=== PATIENT | female | born 1970 | race American Indian/Alaskan Native ===

== ENCOUNTER 2019-01-27 20:16 | Observation (INO) | payer MEDICAID ==
[2019-01-27] MEDS ORDERED: Insulin Regular, Human 100 Units/ML 3 ML Vial SUBCUT ONE ×2 (21:57→22:42)
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
[2019-01-27] MEDS ORDERED: Sodium Chloride 0.9% 1,000 ML IV SCH ×2 (22:15→22:45)
[2019-01-27] MEDS ORDERED: HYDROmorphone 0.5 MG/0.5 ML Syringe IVPUSH ONE (22:41)
--- NOTE | 2019-01-27 23:09 | CRLCR ---
Indication: SOB Technique: Chest 1 view Comparison: None Findings/Impression: Cardiovascular and mediastinum: Normal cardiac size. A mildly unfolded aorta with mild prominence of the ascending aorta. Lungs and pleural space: Lungs are clear. No sign of infiltrate or mass. No sign of pleural effusion. No pneumothorax. Bones and soft tissues: No significant findings. Dictated by Gabe Nolan MD @ 01/27/2019 11:08:24 PM Dictated by: Gabe Nolan MD @ 01/27/2019 23:08:29 (Electronically Signed)
[2019-01-28 00:01] LABS: HEMOGLOBIN A1C 11.7 % (4.5-6.2)
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
[2019-01-28] MEDS ORDERED: Bisacodyl 5 MG Tab PO PRN (01:18)
[2019-01-28] MEDS ORDERED: Ondansetron 4 MG Tab.DIS PO PRN (01:18)
[2019-01-28] MEDS ORDERED: Albuterol 0.083% 2.5 MG/3 ML Neb Soln NEB PRN (01:18)
[2019-01-28] MEDS ORDERED: Sodium Chloride 0.9% 1,000 ML IV SCH (01:18)
[2019-01-28] MEDS ORDERED: LORazepam 2 MG/ML SDV IV PRN (01:18)
[2019-01-28] MEDS ORDERED: Docusate Sodium 100 MG Cap PO PRN (01:18)
[2019-01-28] MEDS ORDERED: Temazepam 15 MG Cap PO PRN (01:18)
[2019-01-28] MEDS: Acetaminophen/HYDROcodone 325-5 MG Tab PO PRN ×2 (02:14→06:20)
[2019-01-28] MEDS: Sulfamethoxazole/Trimethoprim 800-160 MG Tab PO SCH ×3 (02:14→22:19)
[2019-01-28] MEDS ORDERED: FLU Vacc QS2019-20(6MOS+)/PF 60 MCG/0.5 ML SYRINGE IM ONE ×2 (03:00→10:00)
[2019-01-28] MEDS: Morphine 2 MG/ML Syringe IVPUSH PRN ×2 (03:26→09:48)
[2019-01-28] MEDS ORDERED: ceFAZolin 1 GM in Premix Bag 1 BAG IV SCH (04:00)
[2019-01-28] MEDS ORDERED: ceFAZolin 1 GM in Sodium Chloride 0.9% 50 ML IV SCH (04:00)
[2019-01-28] MEDS: Insulin Lispro 100 Unit/ML 3 ML KwikPen SUBCUT SCH ×4 (08:50→21:14)
[2019-01-28] MEDS: Ferrous Sulfate 325 MG Tab PO SCH ×2 (08:51→17:18)
[2019-01-28] MEDS: Bacitracin Oint 28.35 GM Tube TOP SCH ×3 (08:52→21:15)
[2019-01-28] MEDS: Enoxaparin 40 MG/0.4 ML Syringe SUBCUT SCH (08:52)
[2019-01-28] MEDS ORDERED: Pantoprazole 40 MG Vial IVPUSH SCH (09:00)
[2019-01-28] MEDS ORDERED: Enoxaparin 30 MG/0.3 ML Syringe SUBCUT SCH (09:00)
[2019-01-28] MEDS ORDERED: Sodium Ferric Gluconate Cmplex 250 MG in Sodium Chloride 0.9% 100 ML IV ONE ×2 (11:00→13:00)
[2019-01-28] MEDS ORDERED: 50% Dextrose in Water 50 ML Syringe IV PRN (12:38)
[2019-01-28] MEDS ORDERED: Glucose Gel 15 GM in 37.5 GM Tube PO PRN (12:38)
[2019-01-28] MEDS: ceFAZolin 1 GM in Premix Bag 1 BAG IV SCH ×2 (12:39→20:13)
--- NOTE | 2019-01-28 12:43 | PCM.PN ---
- General Info Date of Service: 01/28/19 Subjective Update: Ms. Morales is a 48-year-old woman who was admitted to observation status through the emergency department for management of an infected wound on the posterior aspect of her right lower leg. He has been present now for approximately one week she does have a scabbed area on the knee as well as Sang on the arm that appear to be healing well. 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 Currently treated with ceftezole and and Septra DS. She feels improved from admission and has remained afebrile as well as hemodynamically stable. - Review of Systems General: Reports: Weakness. Denies: Fever, Chills Pulmonary: Reports: No Symptoms Cardiovascular: Reports: No Symptoms Gastrointestinal: Reports: No Symptoms Skin: Reports: Other (Open sore proximally 1 cm in size posterior aspect of the right calf, no obvious cellulitis) - Patient Data Vitals - Most Recent: Last Vital Signs Temp 97.7 F 01/28/19 12:34 Pulse 93 01/28/19 12:34 Resp 16 01/28/19 12:34 BP 110/51 L 01/28/19 12:34 Pulse Ox 98 01/28/19 12:34 Weight - Most Recent: 137 lb 12.623 oz I&O - Last 24 Hours: Intake & Output 01/27/19 01/28/19 01/28/19 22:59 06:59 14:59 Intake Total 1073 368 Output Total 1100 Balance -27 368 Lab Results Last 24 Hours: Laboratory Results - last 24 hr 01/27/19 01/27/19 01/27/19 Range/Units 22:09 22:09 22:16 WBC 13.9 H (4.5-11.0) K/uL RBC 4.33 (3.30-5.50) M/uL Hgb 7.8 L (12.0-15.0) g/dL Hct 28.6 L (36.0-48.0) % MCV 66 L (80-98) fL MCH 18 L (27-31) pg MCHC 27 L (32-36) % Plt Count 548 H (150-400) K/uL Neut % (Auto) 76 H (36-66) % Lymph % (Auto) 16 L (24-44) % [place] % (Auto) 7 H (2-6) % Eos % (Auto) 1 L (2-4) % Baso % (Auto) 0 (0-1) % VBG pH (7.350-7.450) Sodium 131 L (140-148) mmol/L Potassium 4.3 (3.6-5.2) mmol/L Chloride 98 L (100-108) mmol/L Carbon Dioxide 24 (21-32) mmol/L Anion Gap 13.3 (5.0-14.0) mmol/L BUN 12 (7-18) mg/dL Creatinine 0.7 (0.6-1.0) mg/dL Est Cr Clr Drug Dosing 94.01 mL/min Estimated GFR (MDRD) > 60 (>60) Glucose 472 H* (74-106) mg/dL Hemoglobin A1c (4.5-6.2) % Calcium 8.5 (8.5-10.1) mg/dL Iron (50-170) ug/dL TIBC (250-450) ug/dl % Saturation (20-55) % Ferritin (8-388) ng/ml Total Bilirubin 0.2 (0.2-1.0) mg/dL AST 10 L (15-37) U/L ALT 17 (12-78) U/L Alkaline Phosphatase 185 H (46-116) U/L Total Protein 8.2 (6.4-8.2) g/dL Albumin 2.9 L (3.4-5.0) g/dL Globulin 5.3 H (2.3-3.5) g/dL Albumin/Globulin Ratio 0.6 L (1.2-2.2) TSH, Ultra Sensitive (0.358-3.740) uIU/mL Urine Color Yellow (YELLOW) Urine Appearance Clear (CLEAR) Urine pH 6.0 (5.0-8.0) Ur Specific [place] <= 1.005 L (1.008-1.030) Urine Protein Negative (NEGATIVE) mg/dL Urine Glucose (UA) 500 H (NEGATIVE) mg/dL Urine Ketones Negative (NEGATIVE) mg/dL Urine Occult Blood Negative (NEGATIVE) Urine Nitrite Negative (NEGATIVE) Urine Bilirubin Negative (NEGATIVE) Urine Urobilinogen 0.2 (0.2-1.0) EU/dL Ur Leukocyte Esterase Trace H (NEGATIVE) Urine RBC Not seen (0-5) Urine WBC 5-10 H (0-5) Ur Epithelial Cells Few Amorphous Sediment Not seen Urine Bacteria Not seen Urine Mucus Not seen Urine Opiates Screen (NEGATIVE) Ur Oxycodone Screen (NEGATIVE) Urine Methadone Screen (NEGATIVE) Ur Propoxyphene Screen (NEGATIVE) Ur Barbiturates Screen (NEGATIVE) Ur Tricyclics Screen (NEGATIVE) Ur Phencyclidine Scrn (NEGATIVE) Ur Amphetamine Screen (NEGATIVE) U Methamphetamines Scrn (NEGATIVE) Urine MDMA Screen (NEGATIVE) U Benzodiazepines Scrn (NEGATIVE) U Cocaine Metab Screen (NEGATIVE) U Marijuana (THC) Screen (NEGATIVE) Blood Type Gel Antibody Screen Crossmatch 01/27/19 01/27/19 01/27/19 Range/Units 22:16 22:31 22:32 WBC (4.5-11.0) K/uL RBC (3.30-5.50) M/uL Hgb (12.0-15.0) g/dL Hct (36.0-48.0) % MCV (80-98) fL MCH (27-31) pg MCHC (32-36) % Plt Count (150-400) K/uL Neut % (Auto) (36-66) % Lymph % (Auto) (24-44) % [place] % (Auto) (2-6) % Eos % (Auto) (2-4) % Baso % (Auto) (0-1) % VBG pH 7.446 (7.350-7.450) Sodium (140-148) mmol/L Potassium (3.6-5.2) mmol/L Chloride (100-108) mmol/L Carbon Dioxide (21-32) mmol/L Anion Gap (5.0-14.0) mmol/L BUN (7-18) mg/dL Creatinine (0.6-1.0) mg/dL Est Cr Clr Drug Dosing mL/min Estimated GFR (MDRD) (>60) Glucose (74-106) mg/dL Hemoglobin A1c (4.5-6.2) % Calcium (8.5-10.1) mg/dL Iron (50-170) ug/dL TIBC (250-450) ug/dl % Saturation (20-55) % Ferritin 5 L (8-388) ng/ml Total Bilirubin (0.2-1.0) mg/dL AST (15-37) U/L ALT (12-78) U/L Alkaline Phosphatase (46-116) U/L Total Protein (6.4-8.2) g/dL Albumin (3.4-5.0) g/dL Globulin (2.3-3.5) g/dL Albumin/Globulin Ratio (1.2-2.2) TSH, Ultra Sensitive (0.358-3.740) uIU/mL Urine Color (YELLOW) Urine Appearance (CLEAR) Urine pH (5.0-8.0) Ur Specific [place] (1.008-1.030) Urine Protein (NEGATIVE) mg/dL Urine Glucose (UA) (NEGATIVE) mg/dL Urine Ketones (NEGATIVE) mg/dL Urine Occult Blood (NEGATIVE) Urine Nitrite (NEGATIVE) Urine Bilirubin (NEGATIVE) Urine Urobilinogen (0.2-1.0) EU/dL Ur Leukocyte Esterase (NEGATIVE) Urine RBC (0-5) Urine WBC (0-5) Ur Epithelial Cells Amorphous Sediment Urine Bacteria Urine Mucus Urine Opiates Screen Negative (NEGATIVE) Ur Oxycodone Screen Negative (NEGATIVE) Urine Methadone Screen Negative (NEGATIVE) Ur Propoxyphene Screen Negative (NEGATIVE) Ur Barbiturates Screen Negative (NEGATIVE) Ur Tricyclics Screen Negative (NEGATIVE) Ur Phencyclidine Scrn Negative (NEGATIVE) Ur Amphetamine Screen Negative (NEGATIVE) U Methamphetamines Scrn Negative (NEGATIVE) Urine MDMA Screen Negative (NEGATIVE) U Benzodiazepines Scrn Negative (NEGATIVE) U Cocaine Metab Screen Negative (NEGATIVE) U Marijuana (THC) Screen Negative (NEGATIVE) Blood Type Gel Antibody Screen Crossmatch 01/27/19 01/27/19 01/28/19 Range/Units 23:35 23:35 05:35 WBC 10.6 (4.5-11.0) K/uL RBC 3.92 (3.30-5.50) M/uL Hgb 7.0 L (12.0-15.0) g/dL Hct 26.2 L (36.0-48.0) % MCV 67 L (80-98) fL MCH 18 L (27-31) pg MCHC 27 L (32-36) % Plt Count 453 H (150-400) K/uL Neut % (Auto) 65 (36-66) % Lymph % (Auto) 25 (24-44) % [place] % (Auto) 7 H (2-6) % Eos % (Auto) 2 (2-4) % Baso % (Auto) 0 (0-1) % VBG pH (7.350-7.450) Sodium (140-148) mmol/L Potassium (3.6-5.2) mmol/L Chloride (100-108) mmol/L Carbon Dioxide (21-32) mmol/L Anion Gap (5.0-14.0) mmol/L BUN (7-18) mg/dL Creatinine (0.6-1.0) mg/dL Est Cr Clr Drug Dosing mL/min Estimated GFR (MDRD) (>60) Glucose (74-106) mg/dL Hemoglobin A1c 11.7 H (4.5-6.2) % Calcium (8.5-10.1) mg/dL Iron (50-170) ug/dL TIBC (250-450) ug/dl % Saturation (20-55) % Ferritin (8-388) ng/ml Total Bilirubin (0.2-1.0) mg/dL AST (15-37) U/L ALT (12-78) U/L Alkaline Phosphatase (46-116) U/L Total Protein (6.4-8.2) g/dL Albumin (3.4-5.0) g/dL Globulin (2.3-3.5) g/dL Albumin/Globulin Ratio (1.2-2.2) TSH, Ultra Sensitive 0.195 L (0.358-3.740) uIU/mL Urine Color (YELLOW) Urine Appearance (CLEAR) Urine pH (5.0-8.0) Ur Specific [place] (1.008-1.030) Urine Protein (NEGATIVE) mg/dL Urine Glucose (UA) (NEGATIVE) mg/dL Urine Ketones (NEGATIVE) mg/dL Urine Occult Blood (NEGATIVE) Urine Nitrite (NEGATIVE) Urine Bilirubin (NEGATIVE) Urine Urobilinogen (0.2-1.0) EU/dL Ur Leukocyte Esterase (NEGATIVE) Urine RBC (0-5) Urine WBC (0-5) Ur Epithelial Cells Amorphous Sediment Urine Bacteria Urine Mucus Urine Opiates Screen (NEGATIVE) Ur Oxycodone Screen (NEGATIVE) Urine Methadone Screen (NEGATIVE) Ur Propoxyphene Screen (NEGATIVE) Ur Barbiturates Screen (NEGATIVE) Ur Tricyclics Screen (NEGATIVE) Ur Phencyclidine Scrn (NEGATIVE) Ur Amphetamine Screen (NEGATIVE) U Methamphetamines Scrn (NEGATIVE) Urine MDMA Screen (NEGATIVE) U Benzodiazepines Scrn (NEGATIVE) U Cocaine Metab Screen (NEGATIVE) U Marijuana (THC) Screen (NEGATIVE) Blood Type Gel Antibody Screen Crossmatch 01/28/19 01/28/19 01/28/19 Range/Units 05:35 05:35 05:35 WBC (4.5-11.0) K/uL RBC (3.30-5.50) M/uL Hgb (12.0-15.0) g/dL Hct (36.0-48.0) % MCV (80-98) fL MCH (27-31) pg MCHC (32-36) % Plt Count (150-400) K/uL Neut % (Auto) (36-66) % Lymph % (Auto) (24-44) % [place] % (Auto) (2-6) % Eos % (Auto) (2-4) % Baso % (Auto) (0-1) % VBG pH (7.350-7.450) Sodium 137 L (140-148) mmol/L Potassium 3.6 (3.6-5.2) mmol/L Chloride 105 (100-108) mmol/L Carbon Dioxide 23 (21-32) mmol/L Anion Gap 12.6 (5.0-14.0) mmol/L BUN 7 (7-18) mg/dL Creatinine 0.4 L (0.6-1.0) mg/dL Est Cr Clr Drug Dosing 164.52 mL/min Estimated GFR (MDRD) > 60 (>60) Glucose 128 H (74-106) mg/dL Hemoglobin A1c (4.5-6.2) % Calcium 7.3 L (8.5-10.1) mg/dL Iron 10 L (50-170) ug/dL TIBC 334 (250-450) ug/dl % Saturation 3 L (20-55) % Ferritin (8-388) ng/ml Total Bilirubin (0.2-1.0) mg/dL AST (15-37) U/L ALT (12-78) U/L Alkaline Phosphatase (46-116) U/L Total Protein (6.4-8.2) g/dL Albumin (3.4-5.0) g/dL Globulin (2.3-3.5) g/dL Albumin/Globulin Ratio (1.2-2.2) TSH, Ultra Sensitive (0.358-3.740) uIU/mL Urine Color (YELLOW) Urine Appearance (CLEAR) Urine pH (5.0-8.0) Ur Specific [place] (1.008-1.030) Urine Protein (NEGATIVE) mg/dL Urine Glucose (UA) (NEGATIVE) mg/dL Urine Ketones (NEGATIVE) mg/dL Urine Occult Blood (NEGATIVE) Urine Nitrite (NEGATIVE) Urine Bilirubin (NEGATIVE) Urine Urobilinogen (0.2-1.0) EU/dL Ur Leukocyte Esterase (NEGATIVE) Urine RBC (0-5) Urine WBC (0-5) Ur Epithelial Cells Amorphous Sediment Urine Bacteria Urine Mucus Urine Opiates Screen (NEGATIVE) Ur Oxycodone Screen (NEGATIVE) Urine Methadone Screen (NEGATIVE) Ur Propoxyphene Screen (NEGATIVE) Ur Barbiturates Screen (NEGATIVE) Ur Tricyclics Screen (NEGATIVE) Ur Phencyclidine Scrn (NEGATIVE) Ur Amphetamine Screen (NEGATIVE) U Methamphetamines Scrn (NEGATIVE) Urine MDMA Screen (NEGATIVE) U Benzodiazepines Scrn (NEGATIVE) U Cocaine Metab Screen (NEGATIVE) U Marijuana (THC) Screen (NEGATIVE) Blood Type O POSITIVE Gel Antibody Screen Negative Crossmatch See Detail Adryan Results Last 24 Hours: Microbiology 01/28/19 00:58 Gram Stain - Final Calf, Left Med Orders - Current: Current Medications Acetaminophen (Tylenol) 650 mg PO Q4H PRN PRN Reason: Pain (Mild 1-3)/fever Albuterol (Proventil Neb Soln) 2.5 mg NEB Q4H PRN PRN Reason: Shortness Of Breath/wheezing Bacitracin (Bacitracin Oint) 0 gm TOP TID [facility] Last Admin: 01/28/19 08:52 Dose: 1 applic Bisacodyl (Dulcolax) 5 mg PO DAILY PRN PRN Reason: Constipation Dextrose (Glutose 15) 15 gm PO ONETIME PRN PRN Reason: Hypoglycemia Dextrose/Water (Dextrose 50% In Water) 50 ml IV ONETIME PRN PRN Reason: Hypoglycemia Docusate Sodium (Colace) 100 mg PO BID PRN PRN Reason: Constipation Enoxaparin Sodium (Lovenox) 40 mg SUBCUT DAILY [facility] Last Admin: 01/28/19 08:52 Dose: 40 mg Ferrous Sulfate (Ferrous Sulfate) 325 mg PO BIDMEALS [facility] Last Admin: 01/28/19 08:51 Dose: 325 mg Cefazolin Sodium/Dextrose 1 gm (/ Premix) 50 mls @ 100 mls/hr IV Q8H KACIE Ferric Sodium Gluconate Complex 250 mg/ Sodium Chloride 120 mls @ 60 mls/hr IV ONETIME ONE Stop: 01/28/19 14:59 Ferric Sodium Gluconate Complex 250 mg/ Sodium Chloride 120 mls @ 50 mls/hr IV ONETIME ONE Stop: 01/29/19 10:23 Insulin Glargine (Lantus Solostar) 10 units SUBCUT BEDTIME [facility] Insulin Human Lispro (Humalog) 0 unit SUBCUT QIDACANDBED [facility]; Protocol Last Admin: 01/28/19 08:50 Dose: Not Given Ondansetron HCl (Zofran Odt) 4 mg PO Q6H PRN PRN Reason: Nausea able to take PO Pantoprazole Sodium (Protonix) 40 mg PO ACBREAKFAST [facility] Temazepam (Restoril) 15 mg PO BEDTIME PRN PRN Reason: Sleep Tramadol HCl (Ultram) 50 mg PO Q4H PRN PRN Reason: Pain Trimethoprim/Sulfamethoxazole (Septra Ds) 1 tab PO BID [facility] Last Admin: 01/28/19 08:51 Dose: 1 tab Discontinued Medications Hydrocodone Bitart/Acetaminophen ([place] 325-5 Mg) 1 tab PO Q4H PRN PRN Reason: Pain (moderate 4-6) Last Admin: 01/28/19 06:20 Dose: 1 tab Hydromorphone HCl (Dilaudid) 0.5 mg IVPUSH ONETIME ONE Stop: 01/27/19 22:42 Last Admin: 01/27/19 22:59 Dose: 0.5 mg Sodium Chloride (Normal Saline) 1,000 mls @ 999 mls/hr IV ASDIRECTED [facility] Last Admin: 01/27/19 22:30 Dose: 999 mls/hr Sodium Chloride (Normal Saline) 1,000 mls @ 999 mls/hr IV ASDIRECTED [facility] Last Admin: 01/27/19 23:47 Dose: 999 mls/hr Cefazolin Sodium 1 gm/ Sodium (Chloride) 50 mls @ 100 mls/hr IV Q8H [facility] Last Admin: 01/28/19 03:28 Dose: 100 mls/hr Sodium Chloride (Normal Saline) 1,000 mls @ 125 mls/hr IV ASDIRECTED [facility] Last Admin: 01/28/19 02:15 Dose: 125 mls/hr Influenza Virus Vaccine (Fluzone Quad [id number] Syringe) 60 mcg IM .ONCE ONE Stop: 01/28/19 10:01 Insulin Human Regular (Humulin R) 5 unit SUBCUT ONETIME ONE Stop: 01/27/19 22:43 Last Admin: 01/27/19 22:57 Dose: 5 units Insulin Human Regular (Humulin R) 5 unit SUBCUT .STK-MED ONE Stop: 01/27/19 21:58 Lorazepam (Ativan) 1 mg IV Q6H PRN PRN Reason: Nausea/Vomiting Morphine Sulfate (Morphine) 2 mg IVPUSH Q2H PRN PRN Reason: Pain (severe 7-10) Last Admin: 01/28/19 09:48 Dose: 2 mg Pantoprazole Sodium (Protonix Iv) 40 mg IVPUSH DAILY [facility] Last Admin: 01/28/19 08:52 Dose: 40 mg - Exam Quality Assessment: DVT Prophylaxis General: Alert, Oriented, Cooperative, Mild Distress Lungs: Clear to Auscultation, Normal Respiratory Effort Cardiovascular: Regular Rate, Regular Rhythm, No Murmurs GI/Abdominal Exam: Soft, Non-Tender, No Organomegaly, No Distention Extremities: Other (Open sore posterior aspect right calf, no active cellulitis) - Problem List Review Problem List Initiated/Reviewed/Updated: Yes - My Orders Last 24 Hours: My Active Orders 01/28/19 02:10 Influenza Vaccine Charge [RC] .DISCHARGE 01/28/19 08:21 Transfuse Red Blood Cells [COMM] Urgent 01/28/19 12:31 Convert IV to Saline Lock [OM.PC] Routine 01/28/19 12:32 traMADol [Ultram] 50 mg PO Q4H PRN 01/28/19 12:38 Blood Glucose Check, Bedside [RC] QIDACANDBED Communication Order [RC] STAT Notify Provider [RC] PRN Dextrose 50% in Water 50 ml IV ONETIME PRN Dextrose [Glutose 15] 15 gm PO ONETIME PRN 01/28/19 13:00 Sodium Ferric Gluconate Cmplex [Ferrlecit IV] 250 mg Sodium Chloride 0.9% [ Normal Saline] 100 ml IV ONETIME 01/28/19 14:00 HGB [HEMOGLOBIN] [HEME] Stat 01/28/19 16:30 GLUCOSE POC LAB TO COLLECT [POC] QIDACANDBED 01/28/19 21:00 GLUCOSE POC LAB TO COLLECT [POC] QIDACANDBED 01/29/19 05:00 BASIC METABOLIC PANEL,BMP [CHEM] Timed CBC WITH AUTO DIFF [HEME] Timed 01/29/19 07:30 GLUCOSE POC LAB TO COLLECT [POC] QIDACANDBED 01/29/19 08:00 Sodium Ferric Gluconate Cmplex [Ferrlecit IV] 250 mg Sodium Chloride 0.9% [ Normal Saline] 100 ml IV ONETIME 01/29/19 11:30 GLUCOSE POC LAB TO COLLECT [POC] QIDACANDBED 01/29/19 16:30 GLUCOSE POC LAB TO COLLECT [POC] QIDACANDBED 01/29/19 21:00 GLUCOSE POC LAB TO COLLECT [POC] QIDACANDBED 01/30/19 07:30 GLUCOSE POC LAB TO COLLECT [POC] QIDACANDBED 01/30/19 11:30 GLUCOSE POC LAB TO COLLECT [POC] QIDACANDBED 01/30/19 16:30 GLUCOSE POC LAB TO COLLECT [POC] QIDACANDBED 01/30/19 21:00 GLUCOSE POC LAB TO COLLECT [POC] QIDACANDBED 01/31/19 07:30 GLUCOSE POC LAB TO COLLECT [POC] QIDACANDBED 01/31/19 11:30 GLUCOSE POC LAB TO COLLECT [POC] QIDACANDBED 01/31/19 16:30 GLUCOSE POC LAB TO COLLECT [POC] QIDACANDBED 01/31/19 21:00 GLUCOSE POC LAB TO COLLECT [POC] QIDACANDBED 02/01/19 07:30 GLUCOSE POC LAB TO COLLECT [POC] QIDACANDBED 02/01/19 11:30 GLUCOSE POC LAB TO COLLECT [POC] QIDACANDBED 02/01/19 16:30 GLUCOSE POC LAB TO COLLECT [POC] QIDACANDBED 02/01/19 21:00 GLUCOSE POC LAB TO COLLECT [POC] QIDACANDBED 02/02/19 07:30 GLUCOSE POC LAB TO COLLECT [POC] QIDACANDBED 02/02/19 11:30 GLUCOSE POC LAB TO COLLECT [POC] QIDACANDBED - Plan Plan:: ASSESSMENT AND PLAN Open wound posterior aspect right calf- oh obvious associated cellulitis -Wound care bacitracin ointment and dressing to cover lesion -IV Ancef 1 gram every 8 hours -PO Septra DS one po bid -would culture pending -am labs - CBC, bmp Type 2 diabetes mellitus - poorly controlled, hemoglobin A1c 11 -medium sliding scale coverage -blood glucose checking before meals and evening. -consult to Nurse Education -consule to Dietary Microcytic Anemia - after hydration hemoglobin has dropped to 7, likely secondary to menstrual periods and iron deficiency -Transfuse 1 unit of red blood cells -Follow-up hemoglobin after transfusion -Ferrlecet 250 mg IV today and tomorrow -ferrous sulfate one po bid -Colace ordered for any constipation concerns. -hemoglobin in am Maintenance issues - - DVT prophylaxis - enoxaparin 30 mg subcut - GI prophylaxis - not indicated - Nutrition - diabetic diet - Hopkins catheter - not indicated CODE STATUS - FULL Admission justification - patient will be referred to observation for expedited workup and wound care consultation Disposition - I would anticipate discharge home after the hospital stay Primary care physician - Nelia Lincoln [facility] Hospitalist Dannie Bell M.D.
[2019-01-28] MEDS: traMADol 50 MG Tab PO PRN ×2 (13:34→19:20)
[2019-01-28] MEDS: Acetaminophen 325 MG Tab PO PRN (19:20)
[2019-01-28] MEDS ORDERED: Insulin Glargine,Human Rec. Analog 100 Units/ML 3 ML Pen SUBCUT SCH (21:00)
[2019-01-29] MEDS: traMADol 50 MG Tab PO PRN ×2 (02:11→09:24)
[2019-01-29] MEDS: Acetaminophen 325 MG Tab PO PRN ×2 (02:11→09:24)
[2019-01-29] MEDS: ceFAZolin 1 GM in Premix Bag 1 BAG IV SCH (04:40)
[2019-01-29 07:19] VITALS: BP 94/58; PULSE 85
[2019-01-29] MEDS: Insulin Lispro 100 Unit/ML 3 ML KwikPen SUBCUT SCH (07:21)
[2019-01-29] MEDS: Ferrous Sulfate 325 MG Tab PO SCH (07:21)
[2019-01-29] MEDS ORDERED: Pantoprazole 40 MG Tab.CR PO SCH (07:30)
[2019-01-29] MEDS ORDERED: Sodium Ferric Gluconate Cmplex 250 MG in Sodium Chloride 0.9% 100 ML IV ONE (08:00)
[2019-01-29] MEDS: Bacitracin Oint 28.35 GM Tube TOP SCH (08:27)
[2019-01-29] MEDS: Enoxaparin 40 MG/0.4 ML Syringe SUBCUT SCH (08:27)
[2019-01-29] MEDS: Sulfamethoxazole/Trimethoprim 800-160 MG Tab PO SCH (08:28)
--- NOTE | 2019-01-29 10:06 | PCM.DCSUM1 ---
Discharge Summary - Hospital Course Brief History: Ms. Morales is a 48-year-old woman who was admitted to observation status through the emergency department because of infected wounds and uncontrolled diabetes mellitus. - Discharge Data Discharge Date: 01/29/19 Discharge Disposition: Home, Self-Care 01 Condition: Fair - Referral to Home Health Primary Care Physician: PCP None - Discharge Diagnosis/Problem(s) (1) Microcytic anemia SNOMED Code(s): 022140168 ICD Code: D50.9 - IRON DEFICIENCY ANEMIA, UNSPECIFIED Status: Acute Current Visit: Yes (2) Iron deficiency SNOMED Code(s): 44391705 ICD Code: E61.1 - IRON DEFICIENCY Status: Acute Current Visit: Yes (3) Cellulitis SNOMED Code(s): 715106646 ICD Code: L03.90 - CELLULITIS, UNSPECIFIED Status: Acute Current Visit: Yes (4) Diabetes mellitus out of control SNOMED Code(s): 77669142, 312916542 ICD Code: E11.65 - TYPE 2 DIABETES MELLITUS WITH HYPERGLYCEMIA Status: Acute Priority: High Current Visit: Yes Qualifiers: Diabetes mellitus type: type 2 Glycemic state: with hyperglycemia Qualified Code(s): E11.65 - Type 2 diabetes mellitus with hyperglycemia (5) History of MRSA infection SNOMED Code(s): 300725463, 889045025 ICD Code: Z86.14 - PERSONAL HISTORY OF METHICILLIN RESIS STAPH INFECTION Status: Acute Priority: High Current Visit: Yes - Patient Summary/Data Consults: Consultations 01/28/19 01:18 Consult to Diabetic Nurse Specialist [CONS] Routine Comment: Physician Instructions: Consult to Building Supervisor [CONS] Routine Comment: Physician Instructions: Quantity: Hospital Course: Ms. Morales is a 48-year-old woman who was admitted to observation status through the emergency department with infected open sores on the extremities, uncontrolled type 2 diabetes mellitus, and microcytic anemia. She had noted sores on her right elbow, right knee, and left posterior calf over the past week. On evaluation in emergency department open lesions on the elbow and knee appeared to be healing, there appeared to be mild cellulitis and infection associated with the wound on her left posterior calf. She has a known history of previous MRSA infection. Urine was found to be positive for methamphetamine. Blood glucose level was significantly elevated and she readily admitted that she had not been taking her metformin or glipizide over the past several weeks. She has a previous history of iron deficient microcytic anemia. On admission she was given IV fluids for hydration, follow-up hemoglobin level had dropped to 7. Iron levels and ferritin were obtained and found to be extremely low. She admitted that she has not been taking her supplemental iron as prescribed. Because of the very low hemoglobin she was transfused 1 unit of red blood cells and hemoglobin came up into the mid 8 range and remained stable through the rest of her hospitalization. She was given 250 mg of IV Ferrlecit on the second and third january prior to discharge. Initially she was treated with long acting and short acting insulin for management of her diabetes, by the time of discharge blood sugars had come into much better range. She will be discharged on her usual dose of metformin and glipizide. Culture from the wound of the posterior calf did grow out group A strep. She will be discharged home with an additional 5 days of oral antibiotic therapy with Septra DS. She was started on IV antibiotic therapy after admission and continued up until the time of discharge. Activity will be as tolerated and she will resume a diabetic diet. Follow-up appointment will be scheduled with her primary care provider within one week. She should also be scheduled for outpatient colonoscopy to further evaluate her microcytic anemia. - Patient Instructions Diet: Diabetic Diet Activity: As Tolerated Other/Special Instructions: Please schedule follow-up appointment with primary care provider within one week. Patient should have outpatient colonoscopy scheduled within one month for evaluation of iron deficient microcytic anemia. - Discharge Plan *PRESCRIPTION DRUG MONITORING PROGRAM REVIEWED*: Not Applicable *COPY OF PRESCRIPTION DRUG MONITORING REPORT IN PATIENT STAN: Not Applicable Prescriptions/Med Rec: Bacitracin 28 gm TP TID #30 gm Ferrous Sulfate 325 mg PO BIDMEALS #60 tablet glipiZIDE [Glucotrol Xl] 5 mg PO DAILY #30 tab.er.24 L. Acidophilus/L.bulgaricus [Lactobacillus Tablet] 1 each PO BID #60 tablet metFORMIN [Glucophage] 1,000 mg PO BIDMEALS #60 tab Sulfamethoxazole/Trimethoprim [Septra DS] 1 tab PO BID #10 tablet Home Medications: Home Meds Bacitracin 28 gm TP TID #30 gm 01/29/19 [Rx] Ferrous Sulfate 325 mg PO BIDMEALS #60 tablet 01/29/19 [Rx] L. Acidophilus/L.bulgaricus [Lactobacillus Tablet] 1 each PO BID #60 tablet 06/14 [Rx] Sulfamethoxazole/Trimethoprim [Septra DS] 1 tab PO BID #10 tablet 01/29/19 [Rx] glipiZIDE [Glucotrol Xl] 5 mg PO DAILY #30 tab.er.24 01/29/19 [Rx] metFORMIN [Glucophage] 1,000 mg PO BIDMEALS #60 tab 01/29/19 [Rx] - Discharge Summary/Plan Comment DC Time >30 min.: No - Patient Data Vitals - Most Recent: Last Vital Signs Temp 98.4 F 01/29/19 07:17 Pulse 85 01/29/19 07:17 Resp 15 01/29/19 07:17 BP 94/58 L 01/29/19 07:17 Pulse Ox 98 01/29/19 07:17 Weight - Most Recent: 137 lb 12.623 oz I&O - Last 24 hours: Intake & Output 01/28/19 01/29/19 01/29/19 23:59 06:59 14:59 Intake Total 500 Balance 500 Lab Results - Last 24 hrs: Laboratory Results - last 24 hr 01/28/19 01/28/19 01/29/19 Range/Units 05:35 13:48 05:11 WBC 7.7 (4.5-11.0) K/uL RBC 4.37 (3.30-5.50) M/uL Hgb 8.2 L 8.5 L (12.0-15.0) g/dL Hct 30.1 L (36.0-48.0) % MCV 69 L (80-98) fL MCH 20 L (27-31) pg MCHC 28 L (32-36) % Plt Count 477 H (150-400) K/uL Neut % (Auto) 60 (36-66) % Lymph % (Auto) 28 (24-44) % [place] % (Auto) 7 H (2-6) % Eos % (Auto) 4 (2-4) % Baso % (Auto) 1 (0-1) % Sodium (140-148) mmol/L Potassium (3.6-5.2) mmol/L Chloride (100-108) mmol/L Carbon Dioxide (21-32) mmol/L Anion Gap (5.0-14.0) mmol/L BUN (7-18) mg/dL Creatinine (0.6-1.0) mg/dL Est Cr Clr Drug Dosing mL/min Estimated GFR (MDRD) (>60) Glucose (74-106) mg/dL Calcium (8.5-10.1) mg/dL Crossmatch See Detail 01/29/19 Range/Units 05:11 WBC (4.5-11.0) K/uL RBC (3.30-5.50) M/uL Hgb (12.0-15.0) g/dL Hct (36.0-48.0) % MCV (80-98) fL MCH (27-31) pg MCHC (32-36) % Plt Count (150-400) K/uL Neut % (Auto) (36-66) % Lymph % (Auto) (24-44) % [place] % (Auto) (2-6) % Eos % (Auto) (2-4) % Baso % (Auto) (0-1) % Sodium 135 L (140-148) mmol/L Potassium 4.4 (3.6-5.2) mmol/L Chloride 105 (100-108) mmol/L Carbon Dioxide 25 (21-32) mmol/L Anion Gap 9.4 (5.0-14.0) mmol/L BUN 5 L (7-18) mg/dL Creatinine 0.5 L (0.6-1.0) mg/dL Est Cr Clr Drug Dosing 131.61 mL/min Estimated GFR (MDRD) > 60 (>60) Glucose 180 H (74-106) mg/dL Calcium 7.8 L (8.5-10.1) mg/dL Crossmatch CAROL Results - Last 24 hrs: Microbiology 01/28/19 00:58 Gram Stain - Final Calf, Left Wound Culture - Preliminary Streptococcus Group A Med Orders - Current: Current Medications Acetaminophen (Tylenol) 650 mg PO Q4H PRN PRN Reason: Pain (Mild 1-3)/fever Last Admin: 01/29/19 09:24 Dose: 650 mg Albuterol (Proventil Neb Soln) 2.5 mg NEB Q4H PRN PRN Reason: Shortness Of Breath/wheezing Bacitracin (Bacitracin Oint) 0 gm TOP TID KACIE Last Admin: 01/29/19 08:27 Dose: 1 applic Bisacodyl (Dulcolax) 5 mg PO DAILY PRN PRN Reason: Constipation Dextrose (Glutose 15) 15 gm PO ONETIME PRN PRN Reason: Hypoglycemia Dextrose/Water (Dextrose 50% In Water) 50 ml IV ONETIME PRN PRN Reason: Hypoglycemia Docusate Sodium (Colace) 100 mg PO BID PRN PRN Reason: Constipation Enoxaparin Sodium (Lovenox) 40 mg SUBCUT DAILY [facility] Last Admin: 01/29/19 08:27 Dose: 40 mg Ferrous Sulfate (Ferrous Sulfate) 325 mg PO BIDMEALS [facility] Last Admin: 01/29/19 07:21 Dose: 325 mg Cefazolin Sodium/Dextrose 1 gm (/ Premix) 50 mls @ 100 mls/hr IV Q8H [facility] Last Admin: 01/29/19 04:40 Dose: 100 mls/hr Insulin Glargine (Lantus Solostar) 10 units SUBCUT BEDTIME [facility] Last Admin: 01/28/19 21:14 Dose: 10 units Insulin Human Lispro (Humalog) 0 unit SUBCUT QIDACANDBED [facility]; Protocol Last Admin: 01/29/19 07:21 Dose: Not Given Ondansetron HCl (Zofran Odt) 4 mg PO Q6H PRN PRN Reason: Nausea able to take PO Pantoprazole Sodium (Protonix) 40 mg PO ACBREAKFAST [facility] Last Admin: 01/29/19 07:21 Dose: 40 mg Temazepam (Restoril) 15 mg PO BEDTIME PRN PRN Reason: Sleep Tramadol HCl (Ultram) 50 mg PO Q4H PRN PRN Reason: Pain Last Admin: 01/29/19 09:24 Dose: 50 mg Trimethoprim/Sulfamethoxazole (Septra Ds) 1 tab PO BID [facility] Last Admin: 01/29/19 08:28 Dose: 1 tab Discontinued Medications Hydrocodone Bitart/Acetaminophen ([place] 325-5 Mg) 1 tab PO Q4H PRN PRN Reason: Pain (moderate 4-6) Last Admin: 01/28/19 06:20 Dose: 1 tab Hydromorphone HCl (Dilaudid) 0.5 mg IVPUSH ONETIME ONE Stop: 01/27/19 22:42 Last Admin: 01/27/19 22:59 Dose: 0.5 mg Sodium Chloride (Normal Saline) 1,000 mls @ 999 mls/hr IV ASDIRECTED [facility] Last Admin: 01/27/19 22:30 Dose: 999 mls/hr Sodium Chloride (Normal Saline) 1,000 mls @ 999 mls/hr IV ASDIRECTED [facility] Last Admin: 01/27/19 23:47 Dose: 999 mls/hr Cefazolin Sodium 1 gm/ Sodium (Chloride) 50 mls @ 100 mls/hr IV Q8H [facility] Last Admin: 01/28/19 03:28 Dose: 100 mls/hr Sodium Chloride (Normal Saline) 1,000 mls @ 125 mls/hr IV ASDIRECTED [facility] Last Admin: 01/28/19 02:15 Dose: 125 mls/hr Ferric Sodium Gluconate Complex 250 mg/ Sodium Chloride 120 mls @ 60 mls/hr IV ONETIME ONE Stop: 01/28/19 14:59 Last Admin: 01/28/19 13:34 Dose: 60 mls/hr Ferric Sodium Gluconate Complex 250 mg/ Sodium Chloride 120 mls @ 60 mls/hr IV ONETIME ONE Stop: 01/29/19 09:59 Last Admin: 01/29/19 08:27 Dose: 60 mls/hr Influenza Virus Vaccine (Fluzone Quad [id number] Syringe) 60 mcg IM .ONCE ONE Stop: 01/28/19 10:01 Last Admin: 01/28/19 12:49 Dose: 60 mcg Insulin Human Regular (Humulin R) 5 unit SUBCUT ONETIME ONE Stop: 01/27/19 22:43 Last Admin: 01/27/19 22:57 Dose: 5 units Insulin Human Regular (Humulin R) 5 unit SUBCUT .STK-MED ONE Stop: 01/27/19 21:58 Lorazepam (Ativan) 1 mg IV Q6H PRN PRN Reason: Nausea/Vomiting Morphine Sulfate (Morphine) 2 mg IVPUSH Q2H PRN PRN Reason: Pain (severe 7-10) Last Admin: 01/28/19 09:48 Dose: 2 mg Pantoprazole Sodium (Protonix Iv) 40 mg IVPUSH DAILY [facility] Last Admin: 01/28/19 08:52 Dose: 40 mg - Exam Quality Assessment: Reports: DVT Prophylaxis General: Reports: Alert, Oriented, Cooperative, No Acute Distress Lungs: Reports: Clear to Auscultation, Normal Respiratory Effort Cardiovascular: Reports: Regular Rate, Regular Rhythm, No Murmurs GI/Abdominal Exam: Soft, Non-Tender, No Organomegaly, No Distention Skin: Reports: Other (Healing wounds, right elbow, right knee, and left calf.)
== END 2019-01-29 11:19 | disposition home or self-care (01) ==
LOC: JP.ED 20:16 → JP.MS 23:48
PROVIDERS: ADMIT Hospitalist; ATTEND Hospitalist
DX: L03.113 Cellulitis of right upper limb (principal); L03.115 Cellulitis of right lower limb; L03.116 Cellulitis of left lower limb; E11.65 Type 2 diabetes mellitus with hyperglycemia; D50.9 Iron deficiency anemia, unspecified; Z86.14 Personal history of Methicillin resistant Staphylococcus aureus infection
CPT/HCPCS: 36415; 36430; 71045; 80048; 80053; 80305-QW; 81001; 82728; 82800; 82962; 83036; 83550; 84443; 85018; 85025; 86850; 86900; 86901; 86920; 86922; 87070; 87077; 87186; 87205; 90686; 93005; 96361; 96372; 96374; 99284; 99284-25; A9270-GY; C9113; G0008; J0690; J1170; J1650; J1815; J1815-GY; J2270; J2916; J7030; J7050; P9016

== ENCOUNTER 2019-05-08 16:35 | Emergency (ER) | payer MEDICAID ==
[2019-05-08 17:05] VITALS: BP 148/89; PULSE 101
[2019-05-08] MEDS ORDERED: Sodium Chloride 0.9% 10 ML Syringe FLUSH PRN (17:38)
[2019-05-08] MEDS ORDERED: Ondansetron 4 MG/2 ML SDV IVPUSH ONE (17:40)
[2019-05-08] MEDS ORDERED: fentaNYL 100 MCG/2 ML SDV IVPUSH ONE (17:40)
[2019-05-08] MEDS ORDERED: Lactated Ringers 1,000 ML IV SCH (17:45)
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
[2019-05-08] MEDS ORDERED: Sodium Chloride 0.9% 10 ML Syringe FLUSH ONE (17:51)
[2019-05-08] MEDS ORDERED: Iopamidol 612 MG/ML 500 ML Multipack Bottle IV ONE (17:51)
[2019-05-08] MEDS ORDERED: Magnesium Citrate Solution 296 ML Bottle PO ONE (19:45)
--- NOTE | 2019-05-08 19:45 | CRLCT ---
INDICATION: Right upper quadrant pain TECHNIQUE: CT abdomen and pelvis acquired with IV contrast. 105 cc Isovue-300 COMPARISON: None FINDINGS: Lower chest: 2.8 centimeter x 1.4 centimeter oval well-circumscribed soft tissue density medial aspect of the left breast. Liver: Unremarkable. Spleen: Unremarkable. Pancreas: Unremarkable. Gallbladder and bile ducts: Unremarkable. Kidneys: Unremarkable. Adrenal glands: Unremarkable. GI tract: Diffuse colonic fecal retention. Appendix is normal. Vascular structures: Unremarkable. Lymph nodes: Unremarkable. Miscellaneous: Unremarkable. No free air or significant free fluid. Pelvic Organs: Unremarkable. Bones: Unremarkable for age. IMPRESSION: Normal appearing gallbladder and common bile duct. Diffuse colonic fecal retention. Dictated by Sivakumar Gaines MD @ 05/08/2019 7:43:02 PM Please note that all CT scans at this facility use dose modulation, iterative reconstruction, and/or weight-based dosing when appropriate to reduce radiation dose to as low as reasonably achievable. Dictated by: Sivakumar Gaines MD @ 05/08/2019 19:43:14 (Electronically Signed)
== END 2019-05-08 20:00 | disposition home or self-care (01) ==
LOC: JP.ED 16:35
DX: K59.01 Slow transit constipation (principal); R10.11 Right upper quadrant pain; R11.0 Nausea; E11.9 Type 2 diabetes mellitus without complications; Z79.4 Long term (current) use of insulin; Z87.891 Personal history of nicotine dependence
CPT/HCPCS: 36415; 74177; 80053; 81001; 81025; 83605; 85025; 96361; 96374; 96375; 99284; A9270; J2405; J3010; J7050; J7120; Q9967; 99282

== ENCOUNTER 2019-06-15 22:17 | Emergency (ER) | payer MEDICAID ==
[2019-06-15 22:44] VITALS: BP 186/106; PULSE 118
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
[2019-06-15] MEDS ORDERED: Acetaminophen/HYDROcodone 325-10 MG Tab PO ONE (23:50)
[2019-06-16] MEDS ORDERED: Acetaminophen/HYDROcodone 325-5 MG Tab ONE (00:04)
== END 2019-06-15 23:56 | disposition home or self-care (01) ==
LOC: JP.ED 22:17
DX: K04.7 Periapical abscess without sinus (principal); K02.9 Dental caries, unspecified; E78.00 Pure hypercholesterolemia, unspecified; E11.9 Type 2 diabetes mellitus without complications; Z79.4 Long term (current) use of insulin; Z79.899 Other long term (current) drug therapy
CPT/HCPCS: 99283; A9270

== ENCOUNTER 2019-06-17 19:36 | Emergency (ER) | payer MEDICAID ==
[2019-06-17 19:50] VITALS: BP 178/101; PULSE 106
[2019-06-17] MEDS ORDERED: Ketorolac 60 MG/2 ML SDV IM ONE (20:10)
[2019-06-17] MEDS ORDERED: cefTRIAXone 1 GM, Lidocaine 1% 2.1 ML IM ONE ×2 (20:10)
[2019-06-17] MEDS ORDERED: Acetaminophen/HYDROcodone 325-5 MG Tab PO ONE (20:11)
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
== END 2019-06-17 20:51 | disposition home or self-care (01) ==
LOC: JP.ED 19:36
DX: K04.7 Periapical abscess without sinus (principal); E78.00 Pure hypercholesterolemia, unspecified; E11.9 Type 2 diabetes mellitus without complications; Z79.4 Long term (current) use of insulin; Z79.899 Other long term (current) drug therapy
CPT/HCPCS: 96372; 99283; A9270; J0696; J1885; J2001

== ENCOUNTER 2020-02-06 19:02 | Emergency (ER) | payer MEDICAID ==
[2020-02-06 19:32] VITALS: BP 158/85; PULSE 99
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
== END 2020-02-06 20:01 | disposition home or self-care (01) ==
LOC: JP.ED 19:02
DX: S91.312A Laceration without foreign body, left foot, initial encounter (principal); E78.00 Pure hypercholesterolemia, unspecified; Z79.4 Long term (current) use of insulin; Z79.899 Other long term (current) drug therapy; W26.8XXA Contact with other sharp object(s), not elsewhere classified, initial encounter
CPT/HCPCS: 12001; 99282; 99282-25